=== PATIENT | male | born 1960 | race African-American/Black ===

== ENCOUNTER 2017-07-02 10:51 | Emergency (ER) | payer OTHER ==
[2017-07-02 11:00] VITALS: BP 112/78; PULSE 70; TEMP 98.7; BMI 21.4
[2017-07-02] MEDS ORDERED: diazePAM 2 MG TABLET PO ONE (11:18)
--- NOTE | 2017-07-02 11:18 | PDOC ---
History of Present Illness - General Chief Complaint: Chest Pain Stated Complaint: CHEST THIGTNESS Time Seen by Provider: 07/02/17 11:01 - History of Present Illness Initial Comments: 07/02/17 11:15 56yo man with no significant PMH who presents with 1 day of L sided "pulling"- like chest discomfort. Does not report that it is painful, but feels as though there is an "extra heart beat" localized just below L nipple area (5o'clock position). Discomfort started around 1pm yesterday and has been continuous since then. He was able to fall asleep and the pain returned when we woke up and while at work today. He denies any dizziness, changes in vision, numbness or tingling. No known cardiac history. Patient drinks coffee regularly, but no recent increase in caffeine consumption. No family history of cardiac disease or sudden or unexplained deaths. No recent trauma or new exercises. Social: Occasional tobacco cigarettes, daily marijuana, denies EtOH/cocaine, and other drugs FHx: Mom- diabetes, no known sudden or unexplained deaths PSx: superficial fingertip repair ALL: NKDA 07/02/17 11:36 Past History - Travel Traveled outside of the country in the last 30 days: No Close contact w/someone who was outside of country & ill: No - Past Medical History Allergies/Adverse Reactions: Allergies Allergy/AdvReac Type Severity Reaction Status Date / Time No Known Allergies Allergy Verified 07/02/17 10:56 COPD: No Other medical history: denies - Suicide/Smoking/Psychosocial Hx Smoking History: Current some day smoker Have you smoked in the past 12 months: Yes Number of Cigarettes Smoked Daily: 2 Information on smoking cessation initiated: No Hx Alcohol Use: Yes Drug/Substance Use Hx: No Substance Use Type: Alcohol Review of Systems - Review of Systems Cardiac (ROS): Yes: Symptoms Reported All Other Systems: Reviewed and Negative *Physical Exam - Vital Signs Last Vital Signs Temp Pulse Resp BP Pulse Ox 98.7 F 70 20 112/78 96 07/02/17 10:56 07/02/17 10:56 07/02/17 10:56 07/02/17 10:56 07/02/17 10:56 - Physical Exam General Appearance: Yes: Nourished, Appropriately Dressed HEENT: positive: Normal ENT Inspection Neck: positive: Supple Respiratory/Chest: positive: Lungs Clear, Normal Breath Sounds. negative: Chest Tender Cardiovascular: positive: Regular Rhythm, Regular Rate, S1, S2. negative: Edema , JVD Musculoskeletal: positive: Normal Inspection Extremity: negative: Calf Tenderness Integumentary: positive: Normal Color Neurologic: positive: Fully Oriented, Alert, Normal Mood/Affect, Motor Strength 11/23 ED Treatment Course - LABORATORY CBC & Chemistry Diagram: 07/02/17 11:32 07/02/17 11:32 Medical Decision Making - Medical Decision Making 07/02/17 11:47 56yo man with atypical chest pain that is very localized to below L nipple. Will do cardiac work-up to r/o ACS, check lytes for metabolic derangement and TSH although suspect etiology likely MSK. Will trial 2mg Valium for muscle relaxer and reassess. -CXR -TSH -CBC, CMP, Mg 07/02/17 12:33 CBC, BMP 07/02/17 11:32 07/02/17 11:32 Hepatic Panel Total Bilirubin 0.7 mg/dL (0.2-1.0) 07/02/17 11:32 AST 51 U/L (15-37) H 07/02/17 11:32 ALT 67 U/L (12-78) 07/02/17 11:32 Alkaline Phosphatase 81 U/L (45-117) 07/02/17 11:32 Albumin 4.0 g/dl (3.4-5.0) 07/02/17 11:32 Laboratory Tests 07/02/17 07/02/17 11:32 11:32 Magnesium 2.6 H Creatine Kinase 124 Troponin I < 0.02 Patient's labs are reassuring. Electrolytes are wnl. That patient has atypical CP for over 24 hours, EKG is normal, and first Troponin is negative. It is highly unlikely patient is having ACS. Patient's reports that his pain has improved with the Valium. 07/02/17 13:24 CXR reveals clear lungs with left base granuloma, sclerotic yohannes and normal yohannes. No focal consolidation, pneumothorax, or pleural effusion. *DC/Admit/Observation/Transfer Diagnosis at time of Disposition: Chest pain, atypical - Discharge Dispostion Disposition: HOME Condition at time of disposition: Stable Admit: No - Referrals - Patient Instructions Printed Discharge Instructions: DI for Atypical Chest Pain, DI for Chest Pain Additional Instructions: Your chest pain is likely due to a muscle spasm, and not from your heart. Please make an appointment to see your primary care physician within 1-2 weeks. Please return to the emergency department if you have worsening pain, experience shortness of breath, dizziness, numbness/tingling, or have new or concerning symptoms. You can take Ibuprofen or Naproxen for the pain. - Post Discharge Activity
[2017-07-02] MEDS ORDERED: diazePAM 2 MG TABLET ONE (11:39)
--- NOTE | 2017-07-02 11:41 | PDOC ---
Attending Attestation - Resident Resident Name: JoaquinHoney - ED Attending Attestation I have performed the following: I have examined & evaluated the patient, The case was reviewed & discussed with the resident, I agree w/resident's findings & plan, Exceptions are as noted - HPI HPI: 07/02/17 11:35 56-year-old male with no significant past medical history, occasional tobacco use and daily marijuana use presents with 1 day of intermittent and very localized left chest "pulling" just below the nipple area. No injuries, denies any associated chest pain or difficulty breathing, not exertional or positional , presents for evaluation. The pull itself lasts for a fleeting second. No history of same, denies any cocaine use or change in his marijuana. unlimited exercise tolerance at baseline, no chest pain but feels the sensation currently. - Physicial Exam PE: 07/02/17 11:41 VSS well appearing lying in stretcher regular with no ectopy on auscultation or on monitor while patient actively experiencing the sensation lungs clear no edema - Medical Decision Making 07/02/17 11:42 Patient seen and evaluated with the resident. I agree with the overall evaluation, assessment, and management with the following summary of visit: 56-year-old male with no significant past medical history presents with atypical and very pinpoint left chest sensation of spasm/pulling, not consistent with angina. No evidence of infectious process, no ectopy or abnormalities on monitoring. EKG is within normal limits We'll check labs trial of muscle relaxant Reassess 07/02/17 12:29 labs normal, trop negative after 2d of sxs along with normal EKG reassuring for noncardiac etiology. lytes normal. CXR pending, if normal pt has had normal tele and can be discharged to outpt f/u. low heart score, atypical presentation. Heart Score/ECG Review #1 ECG reviewed & interpreted by me at: 10:54 General ECG Interpretation: Sinus Rhythm, Normal Rate (78), Normal Intervals ( qtc 428), No acute ischemic changes
[2017-07-02 11:43] LABS: BASOPHIL 0.5 % (0-2.0); EOSINOPHIL 2.6 % (0-4.5); MCH 32.4 pg (25.7-33.7); MCHC 32.9 g/dl (32.0-35.9); MEAN CELL VOLUME 98.4 fl (80-96); MEAN PLT VOLUME 7.8 fl (7.5-11.1); NEUTROPHILS 54.1 % (42.8-82.8); PLATELET COUNT 230 K/MM3 (134-434); RDW 13.2 % (11.9-15.9); WHITE BLOOD COUNT 4.1 K/mm3 (4.0-10.0)
[2017-07-02 12:08] LABS: ANION GAP 6 (8-16); BILIRUBIN,TOTAL 0.7 mg/dL (0.2-1.0); CO2 27 mmol/L (21-32); CREATININE 0.8 mg/dL (0.7-1.3); GLUCOSE,RANDOM 92 mg/dL (74-106); MAGNESIUM 2.6 mg/dL (1.8-2.4); SGOT/AST 51 U/L (15-37); SGPT/ALT 67 U/L (12-78); TOT PROT 8.1 g/dl (6.4-8.2)
[2017-07-02 12:10] LABS: ALK PHOS 81 U/L (45-117)
[2017-07-02 12:23] LABS: CPK 124 IU/L (39-308); TROPONIN I < 0.02 ng/ml (0.00-0.05)
[2017-07-02 12:41] LABS: THYROID STIMULATING HORMONE 0.71 uIU/ml (0.358-3.74)
--- NOTE | 2017-07-02 14:33 | EKG ---
Test Reason : Blood Pressure : / mmHG Vent. Rate : 078 BPM Atrial Rate : 078 BPM P-R Int : 174 ms QRS Dur : 086 ms QT Int : 376 ms P-R-T Axes : 050 049 047 degrees QTc Int : 428 ms NORMAL SINUS RHYTHM POSSIBLE ANTERIOR INFARCT , AGE UNDETERMINED ABNORMAL ECG NO PREVIOUS ECGS AVAILABLE Confirmed by ISMAEL GARCÍA MD ([id number]) on 07/02/2017 2:33:23 PM Referred By: Confirmed By:ISMAEL GARCÍA MD
== END 2017-07-02 14:00 | disposition home or self-care (01) ==
LOC: JER 10:51
DX: R07.89 Other chest pain (principal); F17.210 Nicotine dependence, cigarettes, uncomplicated
CPT/HCPCS: 36415; 71020-TC; 80053; 82550; 83735; 84443; 84484; 85025; 93005; 93010; 99285-25